=== PATIENT | male | born 1975 | race Caucasian/White ===

== ENCOUNTER 2018-09-29 19:25 | Emergency (ER) | payer OTHER ==
--- NOTE | 2018-09-29 19:42 | PDOC ---
Rapid Medical Evaluation Time Seen by Provider: 09/29/18 19:40 Medical Evaluation: Allergies Allergy/AdvReac Type Severity Reaction Status Date / Time No Known Allergies Allergy Verified 03/06/16 20:19 09/29/18 19:40 Pt c/o: 2 weeks of cough, no improvement with OTC, today woke up with back and lung pain feels tightness with deep inhalation Pt on brief exam: vss. lcta Pt ordered for: cxr Pt to proceed to the ED Discharge Disposition - Diagnosis Cough - Referrals - Patient Instructions - Post Discharge Activity
[2018-09-29 19:44] VITALS: BP 135/85; PULSE 66; TEMP 98.5; BMI 27.8
--- NOTE | 2018-09-29 20:22 | PDOC ---
History of Present Illness - General Chief Complaint: Cold Symptoms Stated Complaint: COUGH Time Seen by Provider: 09/29/18 19:40 History Source: Patient Exam Limitations: No Limitations - History of Present Illness Initial Comments: 09/29/18 20:15 HISTORY OF PRESENT ILLNESS: 43-year-old male denies past medical history presents emergency department for evaluation of dry cough and nasal congestion for 2 weeks. Patient reports the cough became worse when he breathes in cold air These past 2 days with deep breaths patient has noted increased pain in his lungs and worsening cough. He denies any mucus production with this cough. He denies any fevers, chills, headaches, blurry vision, ear pain, dizziness, sore throat, chest pain, abdominal pain, nausea, vomiting. No recent travel or sick contacts. PAST MEDICAL HISTORY: Denies past medical history SURGICAL HISTORY: Denies ALLERGIES: No known drug allergies REVIEW OF SYSTEMS General/Constitutional: Denies fever or chills. Denies weakness, weight change. HEENT: Denies change in vision. Denies ear pain or discharge. Denies sore throat. (+)Nasal congestion. Cardiovascular: Denies chest pain or shortness of breath. Respiratory: Dry cough, wheezing, or hemoptysis. Gastrointestinal: Denies nausea, vomiting, diarrhea or constipation. Denies rectal bleeding. Genitourinary: Denies dysuria, frequency, or change in urination. Musculoskeletal: Denies joint or muscle swelling or pain. Denies neck or back pain. Skin and breasts: Denies rash or easy bruising. Neurologic: Denies headache, vertigo, loss of consciousness, or loss of sensation. Psychiatric: Denies depression or anxiety. Endocrine: Denies increased thirst. Denies abnormal weight change. Hematologic/Lymphatic: Denies anemia, easy bleeding, or history of blood clots. Allergic/Immunologic: Denies hives or skin allergy. Denies latex allergy. PHYSICAL EXAM General Appearance: Well-appearing, appropriately dressed. No apparent distress , no intoxication. HEENT: EOMI, PERRLA, normal ENT inspection, normal voice, TMs normal, pharynx normal. No conjunctival pallor. No photophobia, scleral icterus. Cobblestoning in posterior OP. Neck: Supple. Trachea midline. No tenderness, rigidity, carotid bruit, stridor , lymphadenopathy, or thyromegaly. Respiratory/Chest: Lungs CTAB. No shortness of breath, chest tenderness, respiratory distress, accessory muscle use. No crackles, rales, rhonchi, stridor , wheezing, dullness Cardiovascular: RRR. S1, S2. No JVD, murmur, bradycardia, tachycardia. Vascular Pulses: Dorsalis-Pedis (R): 2+, Dorsalis-Pedis (L): 2+ Gastrointestinal/Abdominal: Normal bowel sounds. Abdomen soft, non-distended. No tenderness or rebound tenderness. No organomegaly, pulsatile mass, guarding, hernia, hepatomegaly, splenomegaly. Lymphatic: No adenopathy, tenderness. Musculoskeletal/Extremities: Normal inspection. FROM of all extremities, normal capillary refill. Pelvis Stable. No CVA tenderness. No tenderness to extremities, pedal edema, swelling, erythema or deformity. Integumentary: Appropriate color, dry, warm. 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 Fully oriented, alert. Appropriate mood/affect. Motor strength 5/5. No appreciable EOM palsy, facial droop or sensory deficit. Past History - Past Medical History Allergies/Adverse Reactions: Allergies Allergy/AdvReac Type Severity Reaction Status Date / Time No Known Allergies Allergy Verified 09/29/18 19:41 Home Medications: Ambulatory Orders Ibuprofen [Motrin -] 600 mg PO TID #21 tablet 03/06/16 Benzonatate [Tessalon Pearls -] 200 mg PO TID #42 cap 09/29/18 Anemia: No Asthma: No Cancer: No Cardiac Disorders: No COPD: No - Suicide/Smoking/Psychosocial Hx Smoking History: Never smoked Have you smoked in the past 12 months: No Information on smoking cessation initiated: No Hx Alcohol Use: No Drug/Substance Use Hx: No *Physical Exam - Vital Signs Last Vital Signs Temp Pulse Resp BP Pulse Ox 98.5 F 66 20 135/85 98 09/29/18 19:42 09/29/18 19:42 09/29/18 19:42 09/29/18 19:42 09/29/18 19:42 Moderate Sedation - Procedure Monitoring Vital Signs: Procedure Monitoring Vital Signs Temperature 98.5 F 09/29/18 19:42 Pulse Rate 66 09/29/18 19:42 Respiratory Rate 20 09/29/18 19:42 Blood Pressure 135/85 09/29/18 19:42 O2 Sat by Pulse Oximetry (%) 98 09/29/18 19:42 Medical Decision Making - Medical Decision Making 09/29/18 20:15 A/P: 43-year-old male with upper respiratory infection Chest x-rays read by me: Angles clear. Cardiac silhouette is within normal limits. No focal infiltrations or consolidations noted. Discharge home with prescription for Tessalon Perles I discussed the physical exam findings, ancillary test results and final diagnoses with the patient. I answered all of the patient's questions. The patient was satisfied with the care received and felt comfortable with the discharge plan and treatment plan. The patient will call their primary care physician within 24 hours to arrange follow-up and will return to the Emergency Department with any new, persistent or worsening symptoms. 09/29/18 20:16 *DC/Admit/Observation/Transfer Diagnosis at time of Disposition: URI (upper respiratory infection) Qualifiers: URI type: unspecified URI Qualified Code(s): J06.9 - Acute upper respiratory infection, unspecified - Discharge Dispostion Disposition: HOME Condition at time of disposition: Stable Decision to Admit order: No - Prescriptions Prescriptions: Benzonatate [Tessalon Pearls -] 200 mg PO TID #42 cap - Referrals - Patient Instructions Printed Discharge Instructions: DI for Viral Upper Respiratory Infection -- Adult Additional Instructions: Rest, drink lots of fluids: Teas, water, soups, Pedialyte Saltwater gargles Steamy showers/seem to face break up mucus Avoid contact with others until fevers and cough resolved Lots of handwashing and good hygiene Continue [id number] medications for symptomatic relief Tylenol or Motrin for fever and pain Followup with private physician in one to 2 days as needed Return to emergency department for worsened symptoms, fevers, dehydration - Post Discharge Activity
== END 2018-09-29 20:27 | disposition home or self-care (01) ==
LOC: JERFT 19:25
DX: R05 Cough (principal)
CPT/HCPCS: 71046-TC-FY; 99281-25